=== PATIENT | male | born 1990 | race Caucasian/White ===

== ENCOUNTER 2017-12-24 22:45 | Emergency (ER) | payer MEDICAID, OTHER | END 2017-12-25 03:15 | disposition home or self-care (01) | LOC: E/R 22:45 | DX: F11.10 Opioid abuse, uncomplicated (principal); R40.2132 Coma scale, eyes open, to sound, at arrival to emergency department; R40.2242 Coma scale, best verbal response, confused conversation, at arrival to emergency department; R40.2362 Coma scale, best motor response, obeys commands, at arrival to emergency department | CPT/HCPCS: 99282; Z7502 ==